=== PATIENT | female | born 1985 | race Caucasian/White ===

== ENCOUNTER 2017-07-25 15:22 | Emergency (ER) | payer BC ==
[2017-07-25 15:29] VITALS: BP 155/89
--- NOTE | 2017-07-25 15:41 | UC ---
Hand/Wrist HPI - HPI Summary HPI Summary: Tripped and fell yesterday, hurt right 5th finger and right knee, scrape on the left palm. - History Of Current Complaint Chief Complaint: UCUpperExtremity Stated Complaint: LEFT PINKY INJURY Time Seen by Provider: 07/25/17 15:33 Hx Obtained From: Patient Hx Last Menstrual Period: aug 18 ended ?: No Onset/Duration: Sudden Onset - yesterday, Still Present Severity Initially: Moderate Severity Currently: Mild Character Of Pain: Aching, Throbbing Aggravating Factor(s): Movement, Lifting Alleviating Factor(s): Rest, Ice Associated Signs And Symptoms: Positive: Swelling, Bruising Related History: Dominant Hand Left - Allergies/Home Medications Allergies/Adverse Reactions: Allergies Allergy/AdvReac Type Severity Reaction Status Date / Time No Known Allergies Allergy Verified 07/25/17 15:29 Home Medications: Home Medications Nuvaring 1 dose .ROUTE MONTHLY 07/25/17 [History Confirmed 07/25/17] metFORMIN* [Glucophage 500 MG TAB *] 500 mg PO BID 07/25/17 [History Confirmed 07/25/17] PMH/Surg Hx/FS Hx/Imm Hx Endocrine History: Other - PCOS Other Endocrine History: PCOS - Surgical History Surgical History: Yes Surgery Procedure, Year, and Place: jennifer 2012. uterine polys removed. VAGINAL CYST REMOVED,. pilonidal cyst 2008 - Family History Known Family History: Positive: Hypertension, Diabetes Negative: Cardiac Disease - Social History Occupation: Employed Full-time Lives: With Family Alcohol Use: Occasionally Substance Use Type: None Smoking Status (MU): Never Smoked Tobacco Have You Smoked in the Last Year: No Review of Systems Skin: Bruising Musculoskeletal: Arthralgia Is Patient Immunocompromised?: No All Other Systems Reviewed And Are Negative: Yes Physical Exam Triage Information Reviewed: Yes Appearance: Well-Appearing, No Pain Distress, Obese Vital Signs: Initial Vital Signs Temp 97.3 F 07/25/17 15:27 Pulse 74 07/25/17 15:27 Resp 14 07/25/17 15:27 BP 155/89 07/25/17 15:27 Pulse Ox 99 07/25/17 15:27 Vital Signs Reviewed: Yes Eyes: Positive: Conjunctiva Clear Neck exam: Normal Respiratory Exam: Normal Cardiovascular Exam: Normal Musculoskeletal: Positive: ROM Limited @ - right 5th finger unable to fully bend to make a fist, Other: - tender around the PIP. Neurological Exam: Normal Psychological Exam: Normal Skin: Positive: Other - ecchymosis on the dorantes aspect right 5th finger. Diagnostics - Radiology No standard instances Xray Interpretation: Positive (See Comments) - Tiny, non-displaced chip fracture right 5th middle phalynx. Radiology Interpretation Completed By: ED Physician Hand/Wrist Course/Dx - Differential Dx/Diagnosis Differential Diagnosis/HQI/PQRI: Fracture, Sprain, Strain, Tendonitis Provider Diagnoses: Chip fracture proximal right middle phalynx. Discharge - Discharge Plan Condition: Stable Disposition: HOME Patient Education Materials: Finger Fracture (ED), Splint Care (ED) Referrals: Rubina Campos MD [Primary Care Provider] - William De La Cruz MD [Medical Doctor] - 3 Days (Recheck chip fracture.)
--- NOTE | 2017-07-25 16:10 | RAD ---
HISTORY: Trauma, pain around the PIP joint COMPARISONS: None VIEWS: 3, Frontal, lateral, and oblique views of the fifth digit of the right hand FINDINGS: BONE DENSITY: Normal. BONES: There is no displaced fracture. JOINTS: There is no arthropathy. ALIGNMENT: There is no dislocation. SOFT TISSUES: Unremarkable. OTHER FINDINGS: None. IMPRESSION: NO ACUTE OSSEOUS INJURY. IF SYMPTOMS PERSIST, RECOMMEND REPEAT IMAGING.
== END 2017-07-25 16:30 | disposition home or self-care (01) ==
LOC: UCCORT 15:22
DX: S62.602A Fracture of unspecified phalanx of right middle finger, initial encounter for closed fracture (principal); W01.10XA Fall on same level from slipping, tripping and stumbling with subsequent striking against unspecified object, initial encounter
CPT/HCPCS: 73140; 99212; G0463

== ENCOUNTER 2017-10-29 12:46 | Emergency (ER) | payer BC ==
[2017-10-29 13:14] VITALS: BP 141/75
--- NOTE | 2017-10-29 13:43 | UC ---
Hand/Wrist HPI - HPI Summary HPI Summary: 32 y/o WF presents with left hand pain. She tells me that about an hour prior to her arrival to Urgent Care, she was arguing with her friend and slammed her own hand down on the table to "emphasize a point". Left index finger is painful. Denies hx of injury, numbness, or tingling. - History Of Current Complaint Chief Complaint: UCUpperExtremity Stated Complaint: LEFT FINGER INJURY Time Seen by Provider: 10/29/17 13:43 Hx Obtained From: Patient Hx Last Menstrual Period: 10/17/2017 Onset/Duration: Sudden Onset Severity Initially: Mild Severity Currently: Mild Pain Intensity: 1 Pain Scale Used: 0-10 Numeric Character Of Pain: Dull, Aching - Allergies/Home Medications Allergies/Adverse Reactions: Allergies Allergy/AdvReac Type Severity Reaction Status Date / Time No Known Allergies Allergy Verified 10/29/17 13:06 PMH/Surg Hx/FS Hx/Imm Hx Previously Healthy: Yes - Surgical History Surgical History: Yes Surgery Procedure, Year, and Place: jennifer 2012. uterine polys removed. VAGINAL CYST REMOVED,. pilonidal cyst 2008 - Family History Known Family History: Positive: None, Hypertension, Diabetes Negative: Cardiac Disease - Social History Occupation: Employed Full-time Lives: With Family Alcohol Use: Occasionally Substance Use Type: None Smoking Status (MU): Never Smoked Tobacco Have You Smoked in the Last Year: No Review of Systems Constitutional: Negative Skin: Negative Neurovascular: Negative Musculoskeletal: Other: - Pain left index finger Neurological: Negative All Other Systems Reviewed And Are Negative: Yes Physical Exam Triage Information Reviewed: Yes Appearance: Well-Appearing, No Pain Distress, Well-Nourished Vital Signs: Initial Vital Signs Temp 98.6 F 10/29/17 13:07 Pulse 87 10/29/17 13:07 Resp 16 10/29/17 13:07 BP 141/75 10/29/17 13:07 Pulse Ox 100 10/29/17 13:07 Vital Signs Reviewed: Yes Respiratory: Positive: Chest non-tender, Lungs clear, Normal breath sounds Cardiovascular: Positive: RRR, No Murmur, Pulses Normal - Left radial and ulnar , Brisk Capillary Refill - Left hand and all fingers Musculoskeletal: Positive: Strength Intact - Left hand and index finger, ROM Intact - Left hand and index finger, No Edema - Left hand and index finger, Other: - NTTP left index finger or hand. No snuffbox tenderness. No obvious bony deformity. Neurological: Positive: Alert, Other: - Sensations intact left hand and all fingers Psychological: Positive: Age Appropriate Behavior Skin: Positive: Other - No ecchymosis, erythema, or open wounds to left hand or fingers Hand/Wrist Course/Dx - Course Course Of Treatment: Hand XR: IMPRESSION: NO ACUTE OSSEOUS INJURY. IF SYMPTOMS PERSIST, RECOMMEND REPEAT IMAGING. After her XR, pt stated the pain was gone. Likely this is a soft tissue contusion. Advised if her symptoms return to try ibuprofen as needed. - Differential Dx/Diagnosis Differential Diagnosis/HQI/PQRI: Contusion, Dislocation, Fracture, Sprain, Strain Provider Diagnoses: Left hand contusion Discharge - Discharge Plan Condition: Stable Disposition: HOME Patient Education Materials: Contusion in Adults (ED) Referrals: Rubina Campos MD [Primary Care Provider] - Additional Instructions: If you develop a fever, shortness of breath, chest pain, new or worsening symptoms - please call your PCP or go to the ED. Your blood pressure was high at todays visit. Please see your primary provider within 4 weeks for recheck and re-evaluation.
--- NOTE | 2017-10-29 14:06 | RAD ---
HISTORY: Left hand pain COMPARISONS: None VIEWS: 4, Frontal, lateral, and oblique views of the left hand FINDINGS: BONE DENSITY: Normal. BONES: There is no displaced fracture. JOINTS: There is no arthropathy. ALIGNMENT: There is no dislocation. SOFT TISSUES: Unremarkable. OTHER FINDINGS: None. IMPRESSION: NO ACUTE OSSEOUS INJURY. IF SYMPTOMS PERSIST, RECOMMEND REPEAT IMAGING.
== END 2017-10-29 14:31 | disposition home or self-care (01) ==
LOC: UCEAST 12:46
DX: S60.222A Contusion of left hand, initial encounter (principal); W22.03XA Walked into furniture, initial encounter; Y93.89 Activity, other specified; Y92.9 Unspecified place or not applicable; Z72.89 Other problems related to lifestyle
CPT/HCPCS: 99211; G0463

== ENCOUNTER 2017-11-03 15:57 | Emergency (ER) | payer BC ==
[2017-11-03 16:08] VITALS: BP 152/79
--- NOTE | 2017-11-03 16:29 | UC ---
Respiratory Complaint HPI - HPI Summary HPI Summary: 2 DAYS OF COUGH, CONGESTION, SINUS PRESSURE, CHAVEZ, FATIGUE AND OVERALL MALAISE. FOUND TO HAVE FEVER HERE AT . HAS BRONCHITIS. FAMILY MEMBER HAD FLU SEVERAL WEEKS AGO. NO FLU SHOT THIS SEASON. - History of Current Complaint Chief Complaint: UCRespiratory Stated Complaint: URI Time Seen by Provider: 11/03/17 16:20 Hx Obtained From: Patient Hx Last Menstrual Period: NUVA RING, 10/18/17 Onset/Duration: Gradual Onset, Lasting Days, Still Present Timing: Constant Severity Initially: Moderate Severity Currently: Moderate Pain Intensity: 6 Pain Scale Used: 0-10 Numeric Character: Cough: Nonproductive Aggravating Factors: Deep Breaths Alleviating Factors: Nothing Associated Signs And Symptoms: Positive: Fever, Chills, URI, Nasal Congestion. Negative: Dyspnea, Wheezing - Allergies/Home Medications Allergies/Adverse Reactions: Allergies Allergy/AdvReac Type Severity Reaction Status Date / Time No Known Allergies Allergy Verified 11/03/17 16:07 PMH/Surg Hx/FS Hx/Imm Hx - Additional Past Medical History Additional PMH: PCOS Respiratory History: Asthma - Surgical History Surgical History: Yes Surgery Procedure, Year, and Place: jennifer 2013. uterine polys removed. VAGINAL CYST REMOVED,. pilonidal cyst 2008 - Family History Known Family History: Positive: Hypertension, Diabetes Negative: Cardiac Disease - Social History Alcohol Use: Occasionally Substance Use Type: None Smoking Status (MU): Never Smoked Tobacco Have You Smoked in the Last Year: No Review of Systems Constitutional: Fever, Fatigue ENT: Ear Ache, Nasal Discharge Respiratory: Cough Cardiovascular: Negative Gastrointestinal: Negative Neurological: Headache All Other Systems Reviewed And Are Negative: Yes Physical Exam Triage Information Reviewed: Yes Appearance: No Pain Distress, Well-Nourished, Ill-Appearing - MILD Vital Signs: Initial Vital Signs Temp 100.4 F 11/03/17 16:01 Pulse 119 11/03/17 16:01 Resp 17 11/03/17 16:01 BP 152/79 11/03/17 16:01 Pulse Ox 99 11/03/17 16:01 Vital Signs Reviewed: Yes Eyes: Positive: Conjunctiva Clear ENT: Positive: Hearing grossly normal, Pharynx normal, TMs normal Neck: Positive: Supple, Nontender, No Lymphadenopathy Respiratory Exam: Normal Cardiovascular: Positive: Tachycardia Abdomen Description: Positive: Soft Musculoskeletal: Positive: No Edema Neurological: Positive: Alert Psychological: Positive: Age Appropriate Behavior Skin: Negative: rashes UC Diagnostic Evaluation - Laboratory O2 Sat by Pulse Oximetry: 99 Diagnostic Studies Comment: INFLUENZA A POSITIVE Respiratory Course/Dx - Differential Dx/Diagnosis Provider Diagnoses: INFLUENZA A Discharge - Discharge Plan Condition: Stable Disposition: HOME Prescriptions: Oseltamivir CAP* [Tamiflu CAP*] 75 mg PO BID #10 cap Patient Education Materials: Influenza (ED) Forms: *Work Release Referrals: Rubina Campos MD [Primary Care Provider] - If Needed Additional Instructions: SWAB POSITICE FOR FLU A. TAMIFLU TWICE DAILY FOR 5 DAYS. OTC MEDS NEEDED FOR SYMPTOMS MANAGEMENT. FOLLOW-UP WITH YOUR PCP IF NEEDED.
[2017-11-03] MEDS ORDERED: Ibuprofen TAB* 600 MG PO ONE (16:53)
== END 2017-11-03 17:49 | disposition home or self-care (01) ==
LOC: UCEAST 15:57
DX: J11.1 Influenza due to unidentified influenza virus with other respiratory manifestations (principal); R00.0 Tachycardia, unspecified; J45.909 Unspecified asthma, uncomplicated
CPT/HCPCS: 87502; 99212; A9270-GY; G0463

== ENCOUNTER 2018-12-08 17:45 | Emergency (ER) | payer BC ==
--- NOTE | 2018-12-08 19:51 | UC ---
Respiratory Complaint HPI - History of Current Complaint Chief Complaint: UCRespiratory Stated Complaint: URI Time Seen by Provider: 12/08/18 19:50 Hx Obtained From: Patient Hx Last Menstrual Period: control ?: No Onset/Duration: Gradual Onset, Lasting Days - 2 days, Still Present, Worse Since - today with wheezing Timing: Intermittent Episodes Severity Initially: Mild Severity Currently: Mild Pain Intensity: 3 Pain Scale Used: 0-10 Numeric Character: Cough: Nonproductive Aggravating Factors: Recumbent Position Alleviating Factors: Bronchodilator, OTC Meds Associated Signs And Symptoms: Positive: Wheezing, URI, Nasal Congestion - Risk Factors Pulmonary Embolism Risk Factors: Negative Cardiac Risk Factors: Negative Pseudomonas Risk Factors: Negative Tuberculosis Risk Factors: Negative - Allergies/Home Medications Allergies/Adverse Reactions: Allergies Allergy/AdvReac Type Severity Reaction Status Date / Time No Known Allergies Allergy Verified 12/08/18 19:06 Home Medications: Home Medications Ibuprofen TAB* [Motrin TAB* 800 MG] 800 mg PO Q6HR PRN 12/08/18 [History Confirmed 12/08/18] Pseudoephedrine HCl [Sudafed] 30 mg PO Q6HR PRN 12/08/18 [History Confirmed ] guaiFENesin [Mucinex] 600 mg PO Q12HR PRN 12/08/18 [History Confirmed 12/08/18] PMH/Surg Hx/FS Hx/Imm Hx Previously Healthy: Yes Respiratory History: Asthma - Surgical History Surgical History: Yes Surgery Procedure, Year, and Place: jennifer 2013. uterine polys removed. VAGINAL CYST REMOVED,. pilonidal cyst 2008 - Family History Known Family History: Positive: Hypertension, Diabetes Negative: Cardiac Disease - Social History Occupation: Employed Full-time Lives: With Family Alcohol Use: Rare Substance Use Type: None Smoking Status (MU): Never Smoked Tobacco Have You Smoked in the Last Year: No Review of Systems All Other Systems Reviewed And Are Negative: Yes Constitutional: Positive: Chills, Other - body aches Skin: Positive: Negative Eyes: Positive: Negative ENT: Positive: Sore Throat - mild, Nasal Discharge - clear, Sinus Congestion Respiratory: Positive: Shortness Of Breath - mild, Cough - dry burning cough, Other - wheezing Cardiovascular: Positive: Negative Gastrointestinal: Positive: Negative Genitourinary: Positive: Negative Motor: Positive: Negative Neurovascular: Positive: Negative Musculoskeletal: Positive: Myalgia Neurological: Positive: Negative Psychological: Positive: Negative Is Patient Immunocompromised?: No Physical Exam - Summary Physical Exam Summary: VITAL SIGNS: Reviewed. GENERAL: Patient is a well developed and nourished female who is sitting comfortable in the examining table. Patient is not in any acute respiratory distress. HEAD AND FACE: No signs of trauma. No ecchymosis, hematomas or skull depressions. No sinus tenderness. EYES: PERRLA, EOMI x 2, No injected conjunctiva, no nystagmus. No photophobia. EARS: Hearing grossly intact. Ear canals and tympanic membranes are within normal limits. Nose: edematous and erythematous nasal mucosa w/ clear nasal discharge. MOUTH: Positive no erythema, no tonsillar enlargement. Uvula in midline. NECK: Supple, trachea is midline, Positive anterior cervical lymphadenopathy, no JVD, no carotid bruit, no c-spine tenderness, neck with full ROM. No meningeal signs, no Kernig's or brudzinskis signs. CHEST: Symmetric, no tenderness at palpation LUNGS: Clear to auscultation bilaterally. No wheezing or crackles. CVS: Regular rate and rhythm, S1 and S2 present, no murmurs or gallops appreciated. ABDOMEN: Soft, non-tender. No signs of distention. No rebound no guarding, and no masses palpated. Bowel sounds are normal. EXTREMITIES: FROM in all major joints, no edema, no cyanosis or clubbing. NEURO: Alert and oriented x 3. No acute neurological deficits. Speech is normal and follows commands. SKIN: Dry and warm Triage Information Reviewed: Yes Vital Signs: Initial Vital Signs Temp 99.6 F 12/08/18 19:01 Pulse 104 12/08/18 19:01 Resp 18 12/08/18 19:01 BP 151/96 12/08/18 19:01 Pulse Ox 98 12/08/18 19:01 UC Diagnostic Evaluation - Laboratory O2 Sat by Pulse Oximetry: 98 Respiratory Course/Dx - Differential Dx/Diagnosis Differential Diagnosis/HQI/PQRI: Asthma, Bronchitis, Influenza, Laryngitis, Lower Resp Infection, Sinusitis Provider Diagnosis: Asthma, Wheezing, Upper respiratory infection, Elevated BP without diagnosis of hypertension Discharge - Sign-Out/Discharge Documenting (check all that apply): Patient Departure - D/c home All imaging exams completed and their final reports reviewed: No Studies - Discharge Plan Condition: Stable Disposition: HOME Prescriptions: Albuterol HFA INHALER* [Ventolin HFA Inhaler*] 1 - 2 puff INH Q6H PRN #1 mdi PRN Reason: Wheezing Benzonatate CAP* [Tessalon 100 MG CAP*] 100 mg PO TID PRN #21 cap PRN Reason: Cough predniSONE TAB* [Deltasone 20 MG TAB*] 20 mg PO DAILY #8 tab Patient Education Materials: Asthma (ED), Upper Respiratory Infection (ED) Forms: *Work Release Referrals: Rubina Campos MD [Primary Care Provider] - 2 Days Additional Instructions: 1- Take Prednisone PO taper dose as directed starting tomorrow. First loading dose given today. 2-Use the albuterol inhaler with the aerochamber to alleviate SOB, and wheezing as directed . Increase fluid intake, rest and eat well. Take Tessalon tabs PO to alleviate cough. Take ibuprofen PO q6-8hrs prn after meals to alleviate pain, swelling or fever. 3- If symptoms do not improve or worsen or your develop SOB with fever and severe wheezing please go immediately to the ER further evaluation and treatment. 4- If not improvement of symptoms F/u with your PCP in 2-3 days for further management on your Asthma 5- Your BP is elevated today. please decrease salt in your diet, monitor BP and if it continues to be elevated please f/u with your PCP for further management. - Billing Disposition and Condition Condition: STABLE Disposition: Home
[2018-12-08] MEDS ORDERED: Albuterol/Ipratropium NEB.SOL* Albuterol 2.5 MG/Ipratropium 0.5 MG 3 ML INH ONE (20:09)
[2018-12-08] MEDS ORDERED: predniSONE TAB* 20 MG PO ONE (20:09)
[2018-12-08 20:13] LABS: Influenza A Molecular NEGATIVE (Negative); Influenza B Molecular NEGATIVE (Negative)
[2018-12-08] MEDS ORDERED: Albuterol HFA INHALER* 8 gm MDI INH ONE (20:55)
[2018-12-08 21:19] VITALS: BP 134/86
== END 2018-12-08 21:26 | disposition home or self-care (01) ==
LOC: UCEAST 17:45
DX: J45.909 Unspecified asthma, uncomplicated (principal); R06.02 Shortness of breath; J06.9 Acute upper respiratory infection, unspecified; R03.0 Elevated blood-pressure reading, without diagnosis of hypertension; M79.10 Myalgia, unspecified site
CPT/HCPCS: 99213; A9270-GY; G0463; J7512

== ENCOUNTER 2019-01-29 12:21 | Emergency (ER) | payer BC ==
[2019-01-29 13:13] VITALS: BP 141/77
--- NOTE | 2019-01-29 13:19 | UC ---
FLU HPI - HPI Summary HPI Summary: 33 y/o female presents to the urgent care c/o Fever this AM 101.9, cough fatigue, chills. Shortness of breath. - History of Current Complaint Chief Complaint: UCRespiratory Stated Complaint: FLU LIKE SYM Time Seen by Provider: 01/29/19 13:16 Hx Obtained From: Patient Hx Last Menstrual Period: 01/16/19 Pain Intensity: 4 - Allergy/Home Medications Allergies/Adverse Reactions: Allergies Allergy/AdvReac Type Severity Reaction Status Date / Time No Known Allergies Allergy Verified 01/29/19 13:13 Home Medications: Home Medications Budesonide/Formote 80/4.5(NF) [Symbicort 80/4.5 (NF)] 2 puff INH BID PRN [History Confirmed 01/29/19] D-Methorphan/PE/Acetaminophen [Gnp Day Time Cold/Flu Rel] 1 liq PO DAILY PRN 05/12 [History Confirmed 01/29/19] PMH/Surg Hx/FS Hx/Imm Hx - Surgical History Surgical History: Yes Surgery Procedure, Year, and Place: jennifer 2012. uterine polys removed. VAGINAL CYST REMOVED,. pilonidal cyst 2008 - Family History Known Family History: Positive: None, Hypertension, Diabetes Negative: Cardiac Disease - Social History Alcohol Use: Occasionally Substance Use Type: None Smoking Status (MU): Never Smoked Tobacco Have You Smoked in the Last Year: No Physical Exam Vital Signs: Initial Vital Signs Temp 97.6 F 01/29/19 13:08 Pulse 93 01/29/19 13:08 Resp 16 01/29/19 13:08 BP 141/77 01/29/19 13:08 Pulse Ox 98 01/29/19 13:08 Flu Course/Dx - Differential Dx/Diagnosis Differential Diagnosis/HQI/PQRI: Bronchitis, Influenza, Pneumonia, Upper Respiratory Infection, Other - pharyngitis Provider Diagnosis: Strep pharyngitis, Influenza A Discharge - Sign-Out/Discharge Documenting (check all that apply): Patient Departure - D/C home All imaging exams completed and their final reports reviewed: No Studies - Discharge Plan Condition: Stable Disposition: HOME Prescriptions: Amoxicillin PO (*) [Amoxicillin 500 MG CAP*] 500 mg PO Q12H #20 cap Ibuprofen TAB* [Motrin TAB* 800 MG] 800 mg PO Q6H PRN #30 tab PRN Reason: pain/fever Oseltamivir CAP* [Tamiflu CAP*] 75 mg PO BID #10 cap Patient Education Materials: Strep Throat (ED), Influenza (ED) Forms: *Work Release Referrals: Rubina Campos MD [Primary Care Provider] - 2 Days Additional Instructions: 1- Please take the full course of the antibiotic to avoid resistance. Take yogurt w/ probiotics or culturelle to protect your GI system 2- Please take the full course of the antiviral to avoid resistance. Encourage hand washing and wear a mask to avoid spreading. 3-Please take ibuprofen PO q6-8hrs prn as instructed after meals to alleviate pain and swelling. Increase fluid intake, eat well, rest and avoid strenuous exercise 4-If symptoms do not improve or worsen please return to the urgent care or f/u with your PCP for further evaluation and treatment. - Billing Disposition and Condition Condition: STABLE Disposition: Home
[2019-01-29] MEDS ORDERED: Albuterol/Ipratropium NEB.SOL* Albuterol 2.5 MG/Ipratropium 0.5 MG 3 ML INH ONE (13:27)
[2019-01-29 13:30] LABS: Influenza A Molecular POSITIVE (Negative)
== END 2019-01-29 14:20 | disposition home or self-care (01) ==
LOC: UCEAST 12:21
DX: J10.1 Influenza due to other identified influenza virus with other respiratory manifestations (principal); J02.0 Streptococcal pharyngitis
CPT/HCPCS: 87651; 99212; A9270-GY; G0463